=== PATIENT | female | born 1970 | race Caucasian/White ===

== ENCOUNTER → 2022-06-07 11:20 | Outpatient (BNVA) | payer BC, SELFPAY | PROVIDERS: PCP Physician Assistant Medical; Visit Provider Internal Medicine Rheumatology | DX: M19.90 Unspecified osteoarthritis, unspecified site (principal); Z11.59 Encounter for screening for other viral diseases; M45.6 Ankylosing spondylitis lumbar region; Z79.899 Other long term (current) drug therapy; R21 Rash and other nonspecific skin eruption; Z11.1 Encounter for screening for respiratory tuberculosis | CPT/HCPCS: 36415; 73130; 73630; 80076; 82565; 85025; 85651; 86140; 86200; 86480; 86704; 86803; 86812; 87340 ==